=== PATIENT | male | born 1945 | race Caucasian/White ===

== ENCOUNTER 2020-08-04 10:45 | Emergency (ER) | payer OTHER ==
[~2020-08-04] VITALS: Ht 170.2 cm; Wt 95.5 kg
[2020-08-04 13:08] LABS: BASOPHILS % (AUTO) 0.2 % (0-1); EOSINOPHILS % (AUTO) 0 % (0-6); HEMATOCRIT 37.9 % (42.0-52.0); LYMPHOCYTES # (AUTO) 0.5 X10'3 (1.1-4.8); LYMPHOCYTES % (AUTO) 3.1 % (21-51); MEAN CORPUSCULAR HEMOGLOBIN 31.1 PG (27.0-31.0); MEAN CORPUSCULAR HGB CONC 34.4 g/dL (33.0-36.5); MEAN CORPUSCULAR VOLUME 90.5 FL (78-98); MEAN PLATELET VOLUME 8.7 FL (7.4-10.4); MONOCYTES # (AUTO) 0.8 X10'3 (0-0.9); MONOCYTES % (AUTO) 4.8 % (2-12); NEUTROPHILS # (AUTO) 15.1 X10'3 (1.8-7.7); NEUTROPHILS % (AUTO) 91.9 % (42-75); PLATELET COUNT 280 X10'3 (140-440); RED BLOOD COUNT 4.19 X10'6 (4.70-6.10); RED CELL DISTRIBUTION WIDTH 13.8 % (11.5-14.5); WHITE BLOOD COUNT 16.4 X10'3 (4.5-11.0)
[2020-08-04 13:21] LABS: ALANINE AMINOTRANSFERASE 13 U/L (12-78); ALBUMIN 3.1 G/DL (3.4-5.0); ALBUMIN/GLOBULIN RATIO 0.7 (1.1-1.5); ALKALINE PHOSPHATASE 62 IU/L (46-116); ANION GAP 9 (8-16); ASPARTATE AMINO TRANSFERASE 21 U/L (10-37); BILIRUBIN,TOTAL 0.9 MG/DL (0.1-1.0); BLOOD UREA NITROGEN 26 MG/DL (7-18); BUN/CREATININE RATIO 14.8 (5.4-32.0); CALCIUM 8.8 MG/DL (8.5-10.1); CHLORIDE 94 MMOL/L (99-107); CREATININE 1.76 MG/DL (0.60-1.10); GLUCOSE 113 MG/DL (70-104); LIPASE 56 U/L (73-393); POTASSIUM 3.1 MMOL/L (3.5-5.1); SODIUM 130 MMOL/L (135-145); TOTAL CARBON DIOXIDE 27.5 MMOL/L (24-32); TOTAL PROTEIN 7.4 G/DL (6.4-8.2); eGFR 38 ML/MIN
[2020-08-04 14:32] LABS: CLARITY,URINE CLEAR (Clear); COLOR,URINE YELLOW (Yellow); GLUCOSE, URINE NEGATIVE (Neg); KETONES,URINE TRACE mg/dl (Neg); LEUKOCYTE ESTERASE ,URINE NEGATIVE (Neg); NITRITES, URINE NEGATIVE (Neg); OCCULT BLOOD,URINE NEGATIVE (Neg); PROTEIN,URINE 30 mg/dl (Neg)
[2020-08-04 14:34] LABS: UA COLLECTION TYPE NON-SPECIFIED
[2020-08-04 14:42] LABS: MUCUS STRANDS MANY /LPF (Neg); SQUAMOUS EPITHELIAL CELL,UR FEW /LPF (FEW)
[2020-08-04 14:44] LABS: BACTERIA,URINE FEW /HPF (Neg); RBC,URINE 0-2 /HPF (0-2); WBC,URINE 0-4 /HPF (0-4)
[2020-08-04] MEDS ORDERED: normal saline 1000ML IV soln IVB ONE (15:00)
[2020-08-04] MEDS ORDERED: ONDA4TAB6 PO (15:12)
[2020-08-04] MEDS ORDERED: POTA20TA19 PO (15:12)
[2020-08-04 16:09] VITALS: BP 149/60
[2020-08-06] MEDS ORDERED: LOSA50TA3 PO (13:21)
[2020-08-06] MEDS ORDERED: ATOR40TA PO (13:21)
[2020-08-06] MEDS ORDERED: EPLE50TA3 PO (13:21)
[2020-08-06] MEDS ORDERED: HYDR-4069 PO ×2 (13:21)
[2020-08-06] MEDS ORDERED: AMLO10TA13 PO (13:21)
[2020-08-06] MEDS ORDERED: METO25TA6 PO (13:21)
[2020-08-06] MEDS ORDERED: CLOP75TA35 PO (13:21)
[2020-08-06] MEDS ORDERED: GABA-534 PO (13:21)
[2020-08-07] MEDS ORDERED: AMLO10TA PO (10:11)
[2020-08-07] MEDS ORDERED: HYDR50TA3 PO (10:15)
[2020-08-07] MEDS ORDERED: LOSA100T57 PO (10:18)
[2020-08-07] MEDS ORDERED: POTA-82 PO (10:18)
[2020-08-07] MEDS ORDERED: MULT-1085 PO (10:18)
[2020-08-07] MEDS ORDERED: ONDA4TAB12 PO (10:18)
[2020-08-07] MEDS ORDERED: insulin pump (10:20)
[2020-08-07] MEDS ORDERED: Insulin Pump (10:21)
[2020-08-07] MEDS ORDERED: EZET10TA6 PO (16:29)
[2020-08-07] MEDS ORDERED: CHLO473M2 PO (16:29)
[2020-08-07] MEDS ORDERED: CHOL100046 PO (16:29)
[2020-08-07] MEDS ORDERED: CARB1DRO11 EACHEYE (16:29)
[2020-08-07] MEDS ORDERED: CYAN500T9 PO (16:29)
[2020-08-07] MEDS ORDERED: HYDR25TA4 PO (16:44)
== END 2020-08-04 16:13 | disposition home or self-care (01) ==
LOC: ER 10:46
DX: R19.7 Diarrhea, unspecified (principal); R05 Cough; R50.9 Fever, unspecified; R53.83 Other fatigue; Z20.828 Contact with and (suspected) exposure to other viral communicable diseases; I10 Essential (primary) hypertension; E11.9 Type 2 diabetes mellitus without complications; Z86.73 Personal history of transient ischemic attack (TIA), and cerebral infarction without residual deficits
CPT/HCPCS: 36415; 71045; 80053; 81001; 83690; 85025; 99284

== ENCOUNTER 2020-08-16 08:55 | Outpatient (CLI) | payer MEDICARE, OTHER ==
[~2020-08-16 08:55] MED LIST: AMLO10TA13 PO; ATOR40TA PO; CARB1DRO11 EACHEYE; CHLO473M2 PO; CHOL100046 PO; CLOP75TA34 PO; CYAN500T9 PO; DEXA6TAB6 PO; EPLE50TA3 PO; EZET10TA6 PO; FURO-150 PO; GABA-534 PO; HYDR-4069 PO; HYDR25TA4 PO; Insulin Pump; LOSA100T57 PO; METO25TA6 PO; MULT-1085 PO; ONDA4TAB12 PO; POTA-82 PO
== END 2020-08-16 23:59 | disposition home or self-care (01) ==
LOC: VAS 08:55
PROVIDERS: ATTEND Internal Medicine
DX: I82.403 Acute embolism and thrombosis of unspecified deep veins of lower extremity, bilateral (principal)
CPT/HCPCS: 93970